=== PATIENT | female | born 1935 | race Caucasian/White ===

== ENCOUNTER 2016-09-10 10:18 | Day surgery (SDC) | payer MEDICARE, OTHER ==
--- NOTE | ~2016-09-10 | EGD ---
EGD REPORT [facility] [address] [id number] NAME: KRISS MARTIN : [birth year] STATUS : REG [facility]#: [id number] AGE: 81 ADM/REG DATE : 09/10/16 MR#: [id number] REPORT SERV DATE: 09/10/16 DICTATED BY: SON RUSSO III DATE: 09/10/16 REPORT STATUS : Draft TRANSCRIBED BY: [facility] DATE: 09/10/16 Endoscopy Center Patient Name: Kriss Martin Date of : 1935 Attending MD: SON RUSSO III, MD Procedure Date No Time: 09/10/2016 Procedure: Upper GI endoscopy Indications: Acute post hemorrhagic anemia, Melena Referring MD: TONY CRUZ MD Medicines: Propofol per Anesthesia Complications: No immediate complications. Procedure: Pre-Anesthesia Assessment: - ASA Grade Assessment: II - A patient with mild systemic disease. After obtaining informed consent, the endoscope was passed under direct vision. Throughout the procedure, the patient's blood pressure, pulse, and oxygen saturations were monitored continuously. The GIF [id number] was introduced through the mouth, and advanced to the third part of duodenum. The upper GI endoscopy was accomplished with ease. The patient tolerated the procedure well. Findings: The examined esophagus was normal. A large hiatus hernia was present. Five non-bleeding linear gastric ulcers with pigmented material were found in the gastric fundus. The largest lesion was 15 mm in largest dimension. Biopsies were taken with a cold forceps for histology. A large diverticulum was found in the second part of the duodenum and in the third part of the duodenum. Using the endoscope, the video capsule enteroscope was advanced into the 3rd part of the duodenum. Multiple small sessile polyps with no bleeding and no stigmata of recent bleeding were found in the entire examined stomach. Impression: - Normal esophagus. - Hiatus hernia. - Gastric ulcers. Biopsied. - Duodenal diverticulum. - Successful completion of the Video Capsule Enteroscope placement. Recommendation: - Patient has a contact number available for emergencies. The signs and symptoms of potential delayed EGD REPORT [address] [place]. [address] NAME: KRISS MARTIN : [birth year] STATUS : REG [facility] PAT#: [id number] AGE: 81 ADM/REG DATE : 09/10/16 MR#: [id number] REPORT SERV DATE: 09/10/16 DICTATED BY: SON RUSSO III DATE: 09/10/16 REPORT STATUS : Draft TRANSCRIBED BY: [employer] DATE: 09/10/16 complications were discussed with the patient. Return to normal activities tomorrow. Written discharge instructions were provided to the patient. - Discharge patient to home. - Continue present medications. - Await pathology results. Procedure Code(s): --- Professional --- 63340, Esophagogastroduodenoscopy, flexible, transoral; with biopsy, single or multiple Diagnosis Code(s): --- Professional --- K44.9, Diaphragmatic hernia without obstruction or gangrene K25.9, Gastric ulcer, unspecified as acute or chronic, without hemorrhage or perforation K57.10, Diverticulosis of small intestine without perforation or abscess without bleeding D62, Acute posthemorrhagic anemia K92.1, Melena CPT copyright 2013 [employer]. All rights reserved. The codes documented in this report are preliminary and upon voting machine repairer review may be revised to meet current compliance requirements. SON RUSSO III, MD 09/10/2016 12:05 PM This report has been signed electronically. Number of Addenda: 0 Note Initiated On: 09/10/2016 11:35 AM [address] [id number]
[~2016-09-10 10:18] MED LIST: ASAB PO; B-COMPLE6 OR; BIOTIN5 MG OR; CALTRA600D PO; DITROPAN XL10 MG PO; EFFEXXR75 PO; FISH-EPA1000 MG PO; GLUCCHONDR PO; JUICE PLUS PO; KAPIDEX60 MG PO; MULTIPLE VIT PO; NEXIUM40 PO; PRAVACHOL40 MG PO; PREVAGEN D PO; PUMPKIN SEED EXTRACT PO; RESVERATROL PO; VITAMIN D1000 UNI1 PO; VITAMIN D31000 UNIT PO; VITC500 PO; [UNRECOGNIZED DRUG - OTHER] PO
== END 2016-09-10 23:59 | disposition home or self-care (01) ==
LOC: DMU 10:18
PROVIDERS: Internal Medicine Gastroenterology
PROC: 0DB68ZX Excision of Stomach, Via Natural or Artificial Opening Endoscopic, Diagnostic (ICD-10-PCS; principal; 2016-09-10 11:30)
PROC: 0DJ07ZZ Inspection of Upper Intestinal Tract, Via Natural or Artificial Opening (ICD-10-PCS; 2016-09-10 11:30)
DX: K25.9 Gastric ulcer, unspecified as acute or chronic, without hemorrhage or perforation (principal); K44.9 Diaphragmatic hernia without obstruction or gangrene; K57.10 Diverticulosis of small intestine without perforation or abscess without bleeding; K31.7 Polyp of stomach and duodenum; K92.1 Melena; K21.9 Gastro-esophageal reflux disease without esophagitis; D62 Acute posthemorrhagic anemia; E04.1 Nontoxic single thyroid nodule; G47.33 Obstructive sleep apnea (adult) (pediatric); G25.81 Restless legs syndrome; M19.90 Unspecified osteoarthritis, unspecified site; F32.9 Major depressive disorder, single episode, unspecified; Z99.89 Dependence on other enabling machines and devices; Z88.5 Allergy status to narcotic agent; Z79.899 Other long term (current) drug therapy; Z90.49 Acquired absence of other specified parts of digestive tract; Z90.710 Acquired absence of both cervix and uterus; Z98.890 Other specified postprocedural states
CPT/HCPCS: 88305